=== PATIENT | female | born 1980 | race Caucasian/White ===

== ENCOUNTER 2017-10-06 18:30 | Emergency (ER) | payer MEDICAID ==
[~2017-10-06] VITALS: Ht 160 cm; Wt 65.3 kg
[2017-10-06 20:13] VITALS: BP 99/59
== END 2017-10-06 20:13 | disposition home or self-care (01) ==
LOC: ED 18:30
DX: J18.9 Pneumonia, unspecified organism (principal)
CPT/HCPCS: J1885

== ENCOUNTER 2017-10-08 18:12 | Inpatient (IN) | payer MEDICAID ==
[~2017-10-08] VITALS: Ht 162.6 cm; Wt 66.4 kg
[2017-10-08 20:00] LABS: PLATELET COUNT 299 x10^3mcL (130-400)
[2017-10-08 20:05] LABS: UA SPECIFIC GRAVITY >=1.030 (1.005-1.035); microscopic required? YES; urine erythrocyte 3+ (NEGATIVE)
[2017-10-08 20:09] LABS: CALCIUM 9.1 mg/dL (8.5-10.1); CARBON DIOXIDE 30.5 mmol/L (21-32); CHLORIDE SERUM 101 mmol/L (98-107); CREATININE SERUM 0.7 mg/dL (0.6-1.0); GFR1 > 60 mL/min; GLUCOSE SERUM 105 mg/dL (74-106); POTASSIUM SERUM 4.2 mmol/L (3.5-5.1); SODIUM SERUM 136 mmol/L (136-145)
[2017-10-08 20:14] LABS: ALBUMIN 2.5 g/dL (3.4-5.0); ALKALINE PHOSPHATASE 138 U/L (46-116); ALT/SGPT 24 U/L (14-59); AST/SGOT 19 U/L (15-37); TOTAL PROTEIN, SERUM 7.3 g/dL (6.4-8.2)
[2017-10-08 20:22] LABS: BAND NEUTROPHIL 3 % (0-10); BASOPHIL 0 % (0-2); MONOCYTE 3 % (0-7); SEGMENTED NEUTROPHILS 89 % (37-75); rbc morphology (normal/abnorm) ABNORMAL (NORMAL)
[2017-10-08 20:39] VITALS: BP 113/65
[2017-10-08 20:57] LABS: T3 TOTAL 1.02 ng/mL
[2017-10-08 21:18] LABS: FREE T4 1.71 ng/dL (0.76-1.46); T4(THYROXINE) 11.4 ug/dL (4.7-13.3)
[2017-10-08 21:56] LABS: MAGNESIUM 2.2 mg/dL (1.8-2.4); PHOSPHOROUS 2.6 mg/dL (2.5-4.9)
[2017-10-08 22:00] LABS: CHOLESTEROL/HDL RATIO 7.2
[2017-10-08 22:15] VITALS: BP 101/55
[2017-10-09 05:25] VITALS: BP 114/67
[2017-10-09 06:36] LABS: BASOPHIL % 0.2 % (0-2); PLATELET COUNT 307 x10^3mcL (130-400); RED CELL DISTRIBUTION WIDTH 13.1 % (11.5-14.5)
[2017-10-09 07:15] LABS: CARBON DIOXIDE 23.7 mmol/L (21-32); CHLORIDE SERUM 109 mmol/L (98-107); CREATININE SERUM 0.5 mg/dL (0.6-1.0); GFR1 > 60 mL/min; GLUCOSE SERUM 80 mg/dL (74-106); MAGNESIUM 2.2 mg/dL (1.8-2.4); PHOSPHOROUS 2.4 mg/dL (2.5-4.9); POTASSIUM SERUM 3.8 mmol/L (3.5-5.1); SODIUM SERUM 139 mmol/L (136-145)
[2017-10-09 09:52] VITALS: BP 104/59
[2017-10-09 13:14] VITALS: BP 105/70
[2017-10-09 17:59] VITALS: BP 120/72
[2017-10-09 21:34] VITALS: BP 108/64
[2017-10-10] VITALS (13 sets, daily range): BP systolic 99–132; BP diastolic 59–84
[2017-10-10 05:58] LABS: CALCIUM 8.2 mg/dL (8.5-10.1); CARBON DIOXIDE 30.5 mmol/L (21-32); CHLORIDE SERUM 109 mmol/L (98-107); CREATININE SERUM 0.4 mg/dL (0.6-1.0); GFR1 > 60 mL/min; GLUCOSE SERUM 112 mg/dL (74-106); PHOSPHOROUS 3.8 mg/dL (2.5-4.9); POTASSIUM SERUM 3.9 mmol/L (3.5-5.1); SODIUM SERUM 145 mmol/L (136-145)
[2017-10-10 06:12] LABS: BASOPHIL % 0.3 % (0-2); PLATELET COUNT 332 x10^3mcL (130-400); RED CELL DISTRIBUTION WIDTH 13.1 % (11.5-14.5)
[2017-10-11 05:00] VITALS: BP 128/79
[2017-10-11 06:23] LABS: PLATELET COUNT 352 x10^3mcL (130-400); RED CELL DISTRIBUTION WIDTH 12.9 % (11.5-14.5)
[2017-10-11 06:24] LABS: CALCIUM 8.3 mg/dL (8.5-10.1); CARBON DIOXIDE 30.7 mmol/L (21-32); CHLORIDE SERUM 104 mmol/L (98-107); CREATININE SERUM 0.5 mg/dL (0.6-1.0); GFR1 > 60 mL/min; GLUCOSE SERUM 116 mg/dL (74-106); MAGNESIUM 2.1 mg/dL (1.8-2.4); PHOSPHOROUS 3.9 mg/dL (2.5-4.9); POTASSIUM SERUM 4.2 mmol/L (3.5-5.1); SODIUM SERUM 141 mmol/L (136-145)
[2017-10-11 07:17] LABS: BASOPHIL % 0 % (0-2)
[2017-10-11 09:36] VITALS: BP 120/71
[2017-10-11 13:00] VITALS: BP 121/79
[2017-10-11 14:23] LABS: APPEARANCE FLUID CLEAR; COLOR FLUID YELLOW; RBC FLUID 70 /cumm; SOURCE FLUID PLEURAL; WBC FLUID 33 /cumm
[2017-10-11 14:24] LABS: LYMPHOCYTE FLUID 0 %; MONOCYTE FLUID 0 %
[2017-10-11 17:14] VITALS: BP 124/80
[2017-10-11 21:09] VITALS: BP 113/69
[2017-10-12 05:34] VITALS: BP 117/69
[2017-10-12 06:30] LABS: BASOPHIL % 0.3 % (0-2)
[2017-10-12 06:57] LABS: PLATELET COUNT 410 x10^3mcL (130-400)
[2017-10-12 07:06] LABS: CALCIUM 8.5 mg/dL (8.5-10.1); CARBON DIOXIDE 30.3 mmol/L (21-32); CHLORIDE SERUM 105 mmol/L (98-107); CREATININE SERUM 0.6 mg/dL (0.6-1.0); GFR1 > 60 mL/min; GLUCOSE SERUM 112 mg/dL (74-106); POTASSIUM SERUM 3.7 mmol/L (3.5-5.1); SODIUM SERUM 144 mmol/L (136-145)
[2017-10-12 08:52] VITALS: BP 109/72
[2017-10-12 12:47] VITALS: BP 108/67
[2017-10-12 15:54] VITALS: BP 126/68
[2017-10-12 20:37] VITALS: BP 128/79
[2017-10-13 05:41] VITALS: BP 118/68
[2017-10-13 06:19] LABS: BASOPHIL % 0.4 % (0-2); PLATELET COUNT 397 x10^3mcL (130-400); RED CELL DISTRIBUTION WIDTH 13.2 % (11.5-14.5)
[2017-10-13 06:26] LABS: CALCIUM 8.4 mg/dL (8.5-10.1); CARBON DIOXIDE 32.4 mmol/L (21-32); CHLORIDE SERUM 107 mmol/L (98-107); CREATININE SERUM 0.9 mg/dL (0.6-1.0); GFR1 > 60 mL/min; GLUCOSE SERUM 110 mg/dL (74-106); POTASSIUM SERUM 3.7 mmol/L (3.5-5.1); SODIUM SERUM 145 mmol/L (136-145)
[2017-10-13 08:49] VITALS: BP 115/76
[2017-10-13 13:40] VITALS: BP 122/81
[2017-10-13 15:00] VITALS: BP 128/79
[2017-10-13 17:29] VITALS: BP 124/83
[2017-10-13 21:06] VITALS: BP 119/74
[2017-10-14 06:17] VITALS: BP 107/73
[2017-10-14 06:26] LABS: CALCIUM 8.4 mg/dL (8.5-10.1); CARBON DIOXIDE 30.7 mmol/L (21-32); CREATININE SERUM 1.2 mg/dL (0.6-1.0); POTASSIUM SERUM 3.5 mmol/L (3.5-5.1)
[2017-10-14 06:46] LABS: BASOPHIL % 1.6 % (0-2); RED CELL DISTRIBUTION WIDTH 12.9 % (11.5-14.5)
[2017-10-14 06:51] LABS: PLATELET COUNT 460 x10^3mcL (130-400)
[2017-10-14 10:44] VITALS: BP 106/68
[2017-10-14 14:50] VITALS: BP 122/73
[2017-10-14 16:35] VITALS: BP 131/73
[2017-10-14 21:15] VITALS: BP 117/72
[2017-10-15 05:14] VITALS: BP 134/79
[2017-10-15 07:09] LABS: BASOPHIL % 0.8 % (0-2); RED CELL DISTRIBUTION WIDTH 12.9 % (11.5-14.5)
[2017-10-15 07:30] LABS: PLATELET COUNT 475 x10^3mcL (130-400)
[2017-10-15 07:34] LABS: CALCIUM 8.3 mg/dL (8.5-10.1); CARBON DIOXIDE 31.4 mmol/L (21-32); CREATININE SERUM 1.7 mg/dL (0.6-1.0); POTASSIUM SERUM 3.5 mmol/L (3.5-5.1)
[2017-10-15 10:07] VITALS: BP 125/74
[2017-10-15 14:07] VITALS: BP 140/77
[2017-10-15 17:40] VITALS: BP 131/76
[2017-10-15 21:42] VITALS: BP 117/70
[2017-10-16 06:35] VITALS: BP 144/86
[2017-10-16 07:03] LABS: CALCIUM 8.3 mg/dL (8.5-10.1); CARBON DIOXIDE 30.5 mmol/L (21-32); CREATININE SERUM 1.8 mg/dL (0.6-1.0); MAGNESIUM 2.3 mg/dL (1.8-2.4); PHOSPHOROUS 4.3 mg/dL (2.5-4.9); POTASSIUM SERUM 4.2 mmol/L (3.5-5.1)
[2017-10-16 07:27] LABS: BASOPHIL % 0.8 % (0-2)
[2017-10-16 07:28] LABS: PLATELET COUNT 546 x10^3mcL (130-400)
[2017-10-16 09:40] VITALS: BP 127/77
[2017-10-16 12:30] VITALS: BP 126/76
[2017-10-16 17:36] VITALS: BP 127/79
[2017-10-16 19:15] LABS: ALBUMIN 1.8 g/dL (3.4-5.0)
[2017-10-16 20:44] VITALS: BP 111/68
[2017-10-17 05:42] VITALS: BP 121/71
[2017-10-17 07:16] LABS: BASOPHIL % 0.2 % (0-2)
[2017-10-17 07:30] LABS: CALCIUM 8.5 mg/dL (8.5-10.1); CARBON DIOXIDE 30.6 mmol/L (21-32); CREATININE SERUM 1.7 mg/dL (0.6-1.0); MAGNESIUM 2.2 mg/dL (1.8-2.4); PHOSPHOROUS 4.2 mg/dL (2.5-4.9); POTASSIUM SERUM 4.2 mmol/L (3.5-5.1)
[2017-10-17 08:26] LABS: RED CELL DISTRIBUTION WIDTH 12.9 % (11.5-14.5)
[2017-10-17 08:27] LABS: PLATELET COUNT 645 x10^3mcL (130-400)
[2017-10-17 08:56] VITALS: BP 132/77
[2017-10-17 12:27] VITALS: BP 137/72
[2017-10-17 16:01] VITALS: BP 120/75
[2017-10-17 20:12] VITALS: BP 124/76
[2017-10-18 05:05] VITALS: BP 128/76
[2017-10-18 07:18] LABS: CALCIUM 8.6 mg/dL (8.5-10.1); CARBON DIOXIDE 31.1 mmol/L (21-32); CREATININE SERUM 1.7 mg/dL (0.6-1.0)
[2017-10-18 07:50] VITALS: Ht 162.6 cm; Wt 66.4 kg
[2017-10-18 07:50] LABS: BASOPHIL % 0.5 % (0-2); RED CELL DISTRIBUTION WIDTH 13.1 % (11.5-14.5)
[2017-10-18 07:54] LABS: PLATELET COUNT 665 x10^3mcL (130-400)
[2017-10-18 08:10] VITALS: BP 146/93
[2017-10-18 12:34] VITALS: BP 144/88
[2017-10-18 18:14] VITALS: BP 115/74
[2017-10-18 21:46] VITALS: BP 144/78
[2017-10-19 05:38] VITALS: BP 125/61
[2017-10-19 07:00] LABS: BASOPHIL % 0.3 % (0-2); RED CELL DISTRIBUTION WIDTH 12.8 % (11.5-14.5)
[2017-10-19 07:55] LABS: CALCIUM 8.6 mg/dL (8.5-10.1); CARBON DIOXIDE 29.4 mmol/L (21-32); CREATININE SERUM 1.5 mg/dL (0.6-1.0)
[2017-10-19 07:57] LABS: PLATELET COUNT 686 x10^3mcL (130-400)
[2017-10-19 09:37] VITALS: BP 127/87
[2017-10-19 12:50] VITALS: BP 109/70
[2017-10-19 21:47] VITALS: BP 117/72
[2017-10-20 05:54] VITALS: BP 129/78
[2017-10-20 06:26] LABS: CALCIUM 8.6 mg/dL (8.5-10.1); CARBON DIOXIDE 28.5 mmol/L (21-32); CREATININE SERUM 1.5 mg/dL (0.6-1.0)
[2017-10-20 06:29] LABS: BASOPHIL % 0.5 % (0-2); RED CELL DISTRIBUTION WIDTH 12.8 % (11.5-14.5)
[2017-10-20 06:41] LABS: PLATELET COUNT 759 x10^3mcL (130-400)
[2017-10-20 09:31] VITALS: BP 133/68
[2017-10-20 17:20] VITALS: BP 131/62
[2017-10-20 20:12] VITALS: BP 117/79
[2017-10-21 06:00] LABS: BASOPHIL % 0.3 % (0-2)
[2017-10-21 06:18] LABS: CALCIUM 8.8 mg/dL (8.5-10.1); CARBON DIOXIDE 25.9 mmol/L (21-32); CREATININE SERUM 1.5 mg/dL (0.6-1.0); POTASSIUM SERUM 4.2 mmol/L (3.5-5.1)
[2017-10-21 06:52] VITALS: BP 138/75
[2017-10-21 07:15] LABS: PLATELET COUNT 739 x10^3mcL (130-400)
[2017-10-21 09:02] VITALS: BP 127/76
[2017-10-21 17:59] VITALS: BP 138/91
[2017-10-21 22:01] VITALS: BP 140/79
[2017-10-22 05:51] VITALS: BP 139/80
[2017-10-22 06:01] LABS: BASOPHIL % 0.3 % (0-2); RED CELL DISTRIBUTION WIDTH 12.5 % (11.5-14.5)
[2017-10-22 06:14] LABS: CALCIUM 8.6 mg/dL (8.5-10.1); CREATININE SERUM 1.6 mg/dL (0.6-1.0); POTASSIUM SERUM 4.3 mmol/L (3.5-5.1)
[2017-10-22 08:41] VITALS: BP 139/78
[2017-10-22 08:41] LABS: PLATELET COUNT 704 x10^3mcL (130-400)
[2017-10-22 12:34] VITALS: BP 121/70
[2017-10-22 17:45] VITALS: BP 149/76
[2017-10-22 21:03] VITALS: BP 117/71
[2017-10-23 05:16] VITALS: BP 119/69
[2017-10-23 06:42] LABS: BASOPHIL % 0.4 % (0-2); RED CELL DISTRIBUTION WIDTH 12.8 % (11.5-14.5)
[2017-10-23 06:48] LABS: CALCIUM 8.5 mg/dL (8.5-10.1); CARBON DIOXIDE 26.1 mmol/L (21-32); CREATININE SERUM 1.7 mg/dL (0.6-1.0); POTASSIUM SERUM 4.2 mmol/L (3.5-5.1)
[2017-10-23 06:59] LABS: PLATELET COUNT 684 x10^3mcL (130-400)
[2017-10-23] MEDS ORDERED: CLEOCIN HCL300 MG PO (08:51)
[2017-10-23 09:23] VITALS: BP 145/80
[2017-10-23 09:26] VITALS: BP 145/80
== END 2017-10-23 10:40 | disposition home or self-care (01) | DRG 720 ==
LOC: ED 18:12 → DU 19:43 → MU 10-19 15:31
PROVIDERS: Emergency Medicine; Family Medicine; Family Medicine Sports Medicine; Student in an Organized Health Care Education/Training Program
PROC: 0W9830Z Drainage of Chest Wall with Drainage Device, Percutaneous Approach (ICD-10-PCS; principal; 2017-10-10)
PROC: 0W993ZZ Drainage of Right Pleural Cavity, Percutaneous Approach (ICD-10-PCS; 2017-10-10)
PROC: 0WP8X0Z Removal of Drainage Device from Chest Wall, External Approach (ICD-10-PCS; 2017-10-16)
DX: A41.9 Sepsis, unspecified organism (principal); N17.0 Acute kidney failure with tubular necrosis; J86.9 Pyothorax without fistula; J18.9 Pneumonia, unspecified organism; E43 Unspecified severe protein-calorie malnutrition; J90 Pleural effusion, not elsewhere classified; R65.20 Severe sepsis without septic shock; N39.0 Urinary tract infection, site not specified; N83.202 Unspecified ovarian cyst, left side; N93.8 Other specified abnormal uterine and vaginal bleeding; E83.39 Other disorders of phosphorus metabolism; Z68.24 Body mass index [BMI] 24.0-24.9, adult
CPT/HCPCS: 32405; 32555; 32557; 83880; 84439; 86480; 86580; 87116; 87206; 94150; C1729; J0696; J1200; J1885; J1956; J2001; J2405; J2543; J3370; J7030; J7620; J7626; Q0092